=== PATIENT | male | born 1945 | race Caucasian/White ===

== ENCOUNTER 2016-10-23 15:33 | Observation (INO) | payer OTHER ==
--- NOTE | 2016-10-23 15:54 | EDPHY ---
H & P Stated Complaint: labile BP, CASIANO, dizziness HPI/ROS: HPI CHIEF COMPLAINT: Denies weakness, lightheadedness, headache, fatigue HISTORY OF PRESENT ILLNESS: This patient very pleasant 70-year-old male significant past medical history for hypertension, closed head injury with concussion in November, presents to the emergency room with I feel really bad patient tells me that he noticed his blood pressure around 1230 today was in the 70s he tells me that he has been very lightheaded and feels as if he is going to pass out. He tells me also he has had generalized weakness, fatigue, no chest pain no shortness of breath no nausea. Tells me does have a headache which is consistent with his previous headaches. Denies focal weakness, numbness or tingling. Decided come the emergency room as he felt really bad after he saw his blood pressure in the 70s. He does tell me gets very lightheaded when he goes to stand up or walk. He denies dizziness room sensation spinning, or chest pain. Denies history of CVA, HI or intracranial bleed. Upon arrival here in the emergency room he did have orthostatics performed by nursing staff his blood pressure while supine was in the 170s however upon standing went down to the 120 systolic. Heart rate did not change more than 10 points. Past Medical History: Bilateral lower extremity neuropathy, concussion, closed- head injury, hypertension Past Surgical History: multiple surgeries including cholecystectomy, multiple orthopedic surgeries, cervical fusion, lumbar fusion Social History: Retired, lives locally, denies drugs, daily use of alcohol, tobacco products Family History: noncontributory ROS REVIEW OF SYSTEMS: A comprehensive 10 point review of systems is otherwise negative aside from elements mentioned in the history of present illness. Exam Constitutional triage nursing summary reviewed, vital signs reviewed, awake/ alert. (Vital signs reviewed positive orthostatics) Eyes normal conjunctivae and sclera, EOMI, PERRLA. HENT normal inspection, atraumatic, moist mucus membranes, no epistaxis, neck supple/ no meningismus, no raccoon eyes. Respiratory clear to auscultation bilaterally, normal breath sounds, no respiratory distress, no wheezing. Cardiovascular rate normal, regular rhythm, no murmur, no edema, distal pulses normal. Gastrointestinal soft, non-tender, no rebound, no guarding, normal bowel sounds, no distension, no pulsatile mass. Genitourinary no CVA tenderness. Musculoskeletal no midline vertebral tenderness, full range of motion, no calf swelling, no tenderness of extremities, no meningismus, good pulses, neurovascularly intact. Skin pink, warm, & dry, no rash, skin atraumatic. Neurologic awake, alert and oriented x 3, AAOx3, moves all 4 extremities equally, motor intact, sensory intact, CN II-XII intact, normal cerebellar, normal vision, normal speech. Psychiatric normal mood/affect. Heme/Lymph/Immune no lymphadenopathy. Differential Diagnosis: This includes but is not limited to in a particular order dehydration, orthostatic hypotension, electrolyte abnormality, doubt intracranial bleed or stroke given normal neurological exam, ACS. Medical Decision Making: This patient had an IV established he is orthostatic positive, he will receive IV fluids, will check EKG, chest x-ray, CT scan of his head, electrolytes and blood work. Re-evaluation: EKG interpretation by me on record in WebMD system. Impression time of EKG is 15 56, this is sinus rhythm rate of 73 this is a normal sinus rhythm, there is no prolonged intervals, there is no ischemic changes specifically no ST elevation, ST depression, T-wave abnormalities or signs of arrhythmia. CT scan of the Without IV contrast The results of the study are negative for acute intracranial abnormality The study was read by Dr. Ash. I viewed the images myself on the PACS system. ED x-ray chest x-ray: One view. Negative for acute cardiopulmonary disease. Image interpreted by myself. 1821: Re-evaluation this patient at this time patient is still complaining of generalized weakness and lightheadedness. Patient did have positive orthostatics with over a 50 point point change from lying down this standing. Due to this patient's age, generalized weakness, lightheadedness he will be admitted to the hospitalist service for observation and hydration. 2038: Re-evaluation at this time patient is resting comfortably no acute distress. Did have positive orthostatics over 50 point change. He did receive 2 L normal saline he is not feeling any better. Due to his complaint of lightheadedness, generalized weakness, feeling as if he is going to pass out his age I will admit him to the hospital for observation and IV hydration he agrees to this plan. 2039: I spoke with Dr. Buckner who accepts admission for this patient Source: Patient - Personal History Current Tetanus Diphtheria and Acellular Pertussis (TDAP): Yes - Medical/Surgical History Hx Asthma: No Hx Chronic Respiratory Disease: No Hx Diabetes: No Hx Cardiac Disease: No Hx Renal Disease: No Hx Cirrhosis: No Hx Alcoholism: No Hx HIV/AIDS: No Hx Splenectomy or Spleen Trauma: No Other PMH: PSH: R knee; B thumb; L hip; cervical c2-c3 fusion; spinal fusion; [place]; HTN, BLE vascular surgery, BLE severe neuropathy. PMH: - Social History Smoking Status: Never smoked Constitutional: Initial Vital Signs Temperature (C) 36.6 C 10/23/16 15:43 Heart Rate 77 10/23/16 15:43 Respiratory Rate 16 10/23/16 15:43 Blood Pressure 164/96 H 10/23/16 15:43 O2 Sat (%) 93 10/23/16 15:43 O2 Delivery Mode Room Air Allergies/Adverse Reactions: lisinopril Allergy (Severe, Verified 12/26/13 10:02) Swelling/neck,face,throat Penicillins Allergy (Mild, Verified 05/31/12 19:07) Home Medications: Medication Instructions Recorded Aspirin EC [Aspirin EC 81 mg (*)] 81 mg PO DAILY 10/23/16 DULoxetine [Cymbalta 30 MG (*)] 90 mg PO HS 10/23/16 Hydrocodone/APAP 5/325 [[place] 1 - 2 tab PO Q6H PRN 10/23/16 5/325 (*)] Phenylephrine 0.25% Nasal 1 spray EACHNARE DAILY PRN 10/23/16 [Kuldip-Synephrine] Pregabalin [LYRICA] 100 mg PO BID 10/23/16 Simvastatin [Zocor] 20 mg PO 10/23/16 amLODIPine BESYLATE [Norvasc 5 mg 5 mg PO DAILY 10/23/16 (*)] Medical Decision Making - Data Points Laboratory Results: Laboratory Results 10/23/16 15:55 10/23/16 15:55 10/23/16 15:55 WBC 7.69 10^3/uL (3.80-9.50) RBC 5.37 10^6/uL (4.40-6.38) Hgb 16.3 g/dL (13.7-17.5) Hct 48.0 % (40.0-51.0) MCV 89.4 fL (81.5-99.8) MCH 30.4 pg (27.9-34.1) MCHC 34.0 g/dL (32.4-36.7) RDW 12.9 % (11.5-15.2) Plt Count 236 10^3/uL (150-400) MPV 10.8 fL (8.7-11.7) Neut % (Auto) 51.3 % (39.3-74.2) Lymph % (Auto) 37.2 % (15.0-45.0) [place] % (Auto) 9.5 % (4.5-13.0) Eos % (Auto) 1.2 % (0.6-7.6) Baso % (Auto) 0.7 % (0.3-1.7) Nucleat RBC Rel Count 0.0 % (0.0-0.2) Absolute Neuts (auto) 3.95 10^3/uL (1.70-6.50) Absolute Lymphs (auto) 2.86 10^3/uL (1.00-3.00) Absolute Monos (auto) 0.73 10^3/uL (0.30-0.80) Absolute Eos (auto) 0.09 10^3/uL (0.03-0.40) Absolute Basos (auto) 0.05 10^3/uL (0.02-0.10) Absolute Nucleated RBC 0.00 10^3/uL (0-0.01) Immature Gran % 0.1 % (0.0-1.1) Immature Gran # 0.01 10^3/uL (0.00-0.10) PT 12.6 SEC (12.0-15.0) INR 0.95 (0.83-1.16) APTT 30.2 SEC (23.0-38.0) Sodium 145 H mEq/L (134-144) Potassium 3.9 mEq/L (3.5-5.2) Chloride 103 mEq/L (97-110) Carbon Dioxide 29 mEq/l (22-31) Anion Gap 13 mEq/L (8-16) BUN 17 mg/dL (7-23) Creatinine 0.9 mg/dL (0.7-1.3) Estimated GFR > 60 Glucose 98 mg/dL (70-100) Calcium 9.7 mg/dL (8.5-10.4) Magnesium 2.1 mg/dL (1.6-2.3) Total Bilirubin 0.6 mg/dL (0.1-1.4) Conjugated Bilirubin 0.3 mg/dL (0.0-0.5) Unconjugated Bilirubin 0.3 mg/dL (0.0-1.1) AST 31 IU/L (17-59) ALT 45 IU/L (21-72) Alkaline Phosphatase 85 IU/L (38-126) Creatine Kinase 123 IU/L (0-224) CK-MB (CK-2) Fraction 1.46 ng/mL (0-3.19) Troponin I < 0.012 ng/mL (0-0.034) NT-Pro-B Natriuret Pep 48 pg/mL (0-125) Total Protein 7.8 g/dL (6.3-8.2) Albumin 4.6 g/dL (3.5-5.0) Lipase 103.0 IU/L (23-300) Medications Given: Discontinued Medications Acetaminophen (Tylenol) 1,000 mg PO EDNOW ONE Stop: 10/23/16 18:02 Last Admin: 10/23/16 18:04 Dose: 1,000 mg Acetaminophen (Tylenol) 1,000 mg PO EDNOW ONE Stop: 10/23/16 18:03 Last Admin: 10/23/16 18:09 Dose: Not Given Sodium Chloride (Ns) 1,000 mls @ 0 mls/hr IV ONCE ONE PRN Reason: As Directed Stop: 10/23/16 16:08 Last Admin: 10/23/16 16:27 Dose: 1,000 mls Sodium Chloride (Ns) 1,000 mls @ 0 mls/hr IV ONCE ONE PRN Reason: Wide Open Stop: 10/23/16 16:21 Last Admin: 10/23/16 16:47 Dose: 1,000 mls Departure - Departure [facility] Clinical Impression: Lightheadedness, Generalized weakness, Orthostatic hypotension Condition: Fair Referrals: IN STATE,. [Primary Care Provider] - As per Instructions
--- NOTE | 2016-10-23 15:58 | CPEKG ---
Heart Rate: 73 RR Interval: 822 P-R Interval: 212 QRSD Interval: 90 QT Interval: 404 QTC Interval: 446 P [place]: 77 QRS [place]: 45 T Wave [place]: 63 EKG Severity - NORMAL ECG - EKG Impression: SINUS RHYTHM Electronically Signed By: Inderjit Patricia 23-Oct-2016 21:18:04
[2016-10-23] MEDS ORDERED: NS 1,000 ML IV ONE ×2 (16:07→16:20)
[2016-10-23 16:19] LABS: % IMMATURE GRANULYOCYTES 0.1 % (0.0-1.1); ABSOLUTE IMMATURE GRANULOCYTES 0.01 10^3/uL (0.00-0.10); ADD DIFF? NO; ADD MORPH? NO; ADD SCAN? NO; ATYPICAL LYMPHOCYTE FLAG 0 (0-99); FRAGMENT RBC FLAG 0 (0-99); HEMOGLOBIN 16.3 g/dL (13.7-17.5); LEFT SHIFT FLG 0 (0-99); LIPEMIA HEMOLYSIS FLAG 90 (0-99); MEAN CELL HEMOGLOBIN 30.4 pg (27.9-34.1); MEAN CELL VOLUME 89.4 fL (81.5-99.8); MEAN PLATELET VOLUME 10.8 fL (8.7-11.7); PLATELET CLUMPS FLAG 0 (0-99); PLATELET COUNT 236 10^3/uL (150-400); RED BLOOD CELL COUNT 5.37 10^6/uL (4.40-6.38); RED CELL DISTRIBUTION WIDTH 12.9 % (11.5-15.2)
[2016-10-23 16:28] LABS: INR 0.95 (0.83-1.16); PROTIME(PATIENT) 12.6 SEC (12.0-15.0)
[2016-10-23 16:29] LABS: ALANINE AMINOTRANSFERASE 45 IU/L (21-72); ALBUMIN 4.6 g/dL (3.5-5.0); ALKALINE PHOSPHATASE 85 IU/L (38-126); ANION GAP 13 mEq/L (8-16); APTT 30.2 SEC (23.0-38.0); ASPARTATE AMINOTRANSFERASE 31 IU/L (17-59); BILIRUBIN,TOTAL 0.6 mg/dL (0.1-1.4); BILIRUBIN-CONJUGATED 0.3 mg/dL (0.0-0.5); BILIRUBIN-UNCONJUGATED 0.3 mg/dL (0.0-1.1); CALCIUM 9.7 mg/dL (8.5-10.4); CARBON DIOXIDE 29 mEq/l (22-31); CHLORIDE 103 mEq/L (97-110); CREATININE 0.9 mg/dL (0.7-1.3); GLOMERULAR FILTRATION RATE > 60; GLUCOSE 98 mg/dL (70-100); MAGNESIUM 2.1 mg/dL (1.6-2.3); POTASSIUM 3.9 mEq/L (3.5-5.2); SODIUM 145 mEq/L (134-144); TOTAL PROTEIN 7.8 g/dL (6.3-8.2)
--- NOTE | 2016-10-23 16:39 | DX ---
Portable Chest October 23, 2016 1619 hours Clinical Indications: Chest pain. Comparisons: None. Findings: Frontal view (only) shows clear lungs and no masses. Heart size and pulmonary vessels jenn ear normal. No evidence of pleural effusion. Impression: No acute cardiopulmonary process.
[2016-10-23 16:41] LABS: CREATINE KINASE-MB FRACTION 1.46 ng/mL (0-3.19); TROPONIN I < 0.012 ng/mL (0-0.034)
--- NOTE | 2016-10-23 16:54 | CT ---
CT Brain (Without Contrast) October 23, 2016 1638 hours History: Headache and dizziness. Comparison: December 09, 2015. Technique: Axial computed tomographic images of the brain without contrast. Dose reduction techniques were utilized. Findings: Ventricles, cisterns, and sulci are widened consistent with atrophy. No hydrocephalus, mid line shift/herniation, or epidural/subdural hematomas. No acute intraparenchymal hemorrhage or mass e ffect. Cerebrovascular atherosclerosis. Hypodensities in the white matter of bilateral cerebral hemis pheres. Bone windows demonstrate no displaced fractures. Mucoceles in the maxillary sinus base are s table. Impression: 1. Mild atrophy. 2. No acute hemorrhage, hydrocephalus, or mass effect. 3. Cerebrovascular atherosclerosis. 4. No definite acute infarct. 5. Mild microvascular ischemic disease. Critical results discussed by Dr. Ash with Dr. Littlejohn at 1651 hours on October 23, 2016.
[2016-10-23] MEDS ORDERED: ACETAMINOPHEN 500 MG TAB PO ONE ×2 (18:01→18:02)
[2016-10-23] MEDS ORDERED: HYDROmorphONE/DILAUDID 1 MG/ML SYR ONE (21:35)
[2016-10-23] MEDS ORDERED: HYDROmorphONE/DILAUDID 1 MG/ML SYR IVP ONE (21:44)
[2016-10-23] MEDS: DULoxetine 60 MG CAP PO SCH (22:40)
[2016-10-23] MEDS: PREGABALIN 50 MG CAP PO SCH (22:40)
[2016-10-23] MEDS ORDERED: PHENYLEPHRINE 0.25% NASAL 15 ML SPRAY EACHNARE PRN (23:42)
[2016-10-23] MEDS ORDERED: NS 1,000 ML IV SCH (23:45)
[2016-10-23] MEDS ORDERED: HYDROCODONE/APAP 5/325 TAB PO PRN (23:48)
[2016-10-23] MEDS ORDERED: TEMAZEPAM 15 MG CAP PO PRN (23:48)
[2016-10-23] MEDS ORDERED: ONDANSETRON 4 MG/2 ML VIAL IVP PRN (23:48)
[2016-10-23] MEDS ORDERED: ACETAMINOPHEN 325 MG TAB PO PRN (23:48)
[2016-10-23] MEDS ORDERED: ONDANSETRON DISINTEGRATING 4 MG TAB PO PRN (23:48)
[2016-10-24 04:41] LABS: COLOR YELLOW; LEUKOCYTE ESTERASE,URINE NEGATIVE (NEGATIVE); NITRITE,URINE NEGATIVE (NEGATIVE)
[2016-10-24 04:46] LABS: % IMMATURE GRANULYOCYTES 0.1 % (0.0-1.1); ABSOLUTE IMMATURE GRANULOCYTES 0.01 10^3/uL (0.00-0.10); ADD DIFF? NO; ADD MORPH? NO; ADD SCAN? NO; ATYPICAL LYMPHOCYTE FLAG 0 (0-99); FRAGMENT RBC FLAG 0 (0-99); HEMATOCRIT 44.8 % (40.0-51.0); HEMOGLOBIN 14.9 g/dL (13.7-17.5); LEFT SHIFT FLG 0 (0-99); LIPEMIA HEMOLYSIS FLAG 80 (0-99); MEAN CELL HEMOGLOBIN 29.8 pg (27.9-34.1); MEAN CELL HEMOGLOBIN CONCENTR. 33.3 g/dL (32.4-36.7); MEAN CELL VOLUME 89.6 fL (81.5-99.8); MEAN PLATELET VOLUME 10.7 fL (8.7-11.7); PLATELET CLUMPS FLAG 0 (0-99); PLATELET COUNT 225 10^3/uL (150-400)
[2016-10-24 05:10] LABS: ANION GAP 12 mEq/L (8-16); CALCIUM 8.9 mg/dL (8.5-10.4); CARBON DIOXIDE 27 mEq/l (22-31); CHLORIDE 105 mEq/L (97-110); CREATININE 0.9 mg/dL (0.7-1.3); GLOMERULAR FILTRATION RATE > 60; GLUCOSE 101 mg/dL (70-100); POTASSIUM 4.9 mEq/L (3.5-5.2); SODIUM 144 mEq/L (134-144)
[2016-10-24 05:21] LABS: TROPONIN I < 0.012 ng/mL (0-0.034)
--- NOTE | 2016-10-24 05:46 | PDGENHP ---
History and Physical - Chief Complaint lightheadedness - History of Present Illness Patient is a 70-year-old male with history of hypertension, hyperlipidemia, chronic tension headaches, peripheral neuritis of his bilateral feet who presents to the ED with complaint of lightheadedness. Patient states he had a fall about 1 year ago that resulted in head trauma and a severe concussion. Since that time patient reports he has been having chronic tension headaches in the posterior neck radiating to his occiput, memory loss and episodes of lightheadedness. He states for the past 2 days the sensation of lightheadedness has significantly worsened, especially when moving from sitting to standing positions. He does not describe it as if the room is spinning but more as if he was going to pass out. On day of presentation patient again felt this way and decided to check his blood pressure, he states it was in the 70/ 50s range at which point he decided to call EMS. He denies any recent fevers chills, cough, abdominal pain, nausea, vomiting, diarrhea or dysuria. He reports normal p.O. intake recently, denies any recent travel or sick contacts. Upon arrival to the ED, patient's vital signs were afebrile, slightly hypertensive, with normal heart rate and respiratory. However on checking of orthostatics, patient's systolic blood pressure dropped from 170 to 120 when moving from supine to standing position. Labs including troponin, a CBC, BMP were within normal limits. UA negative for infection. Chest x-ray negative for signs of infection. Patient was given 2 L of IV normal saline and admitted to the hospitalist service for further management. History Information - Allergies/Home Medication List Allergies/Adverse Reactions: lisinopril Allergy (Severe, Verified 12/26/13 10:02) Swelling/neck,face,throat Penicillins Allergy (Mild, Verified 05/31/12 19:07) Home Medications: Aspirin EC [Aspirin EC 81 mg (*)] 81 mg PO DAILY 10/23/16 [Last Taken 10/22/16] DULoxetine [Cymbalta 30 MG (*)] 90 mg PO HS 10/23/16 [Last Taken 10/22/16] Hydrocodone/APAP 5/325 [[place] 5/325 (*)] 1 - 2 tab PO Q6H PRN 10/23/16 [Last Taken 10/16/16] Phenylephrine 0.25% Nasal [Kuldip-Synephrine] 1 spray EACHNARE DAILY PRN 10/23/16 [ Last Taken Unknown] Pregabalin [LYRICA] 100 mg PO BID 10/23/16 [Last Taken 10/22/16] Simvastatin [Zocor] 20 mg PO 10/23/16 [Last Taken 10/22/16] amLODIPine BESYLATE [Norvasc 5 mg (*)] 5 mg PO DAILY 10/23/16 [Last Taken ] I have personally reviewed and updated: family history, medical history, social history, surgical history - Past Medical History Additional medical history: Hypertension. Chronic tension headache. Hyperlipidemia. Peripheral neuritis of bilateral feet - Surgical History Additional surgical history: Knee replacement. Hip replacement. Colon resection for diverticulitis. L4-S1 fusion. Bilateral varicose vein removal - Family History Additional family history: Father: Brain tumor - Social History Smoking Status: Never smoked Alcohol Use: None Drug Use: None Additional social history: Patient is a retired former caregiver for special needs people. Currently lives independently. Review of Systems ROS: 10pt was reviewed & negative except for what was stated in HPI & below Physical Exam Temp Pulse Resp BP Pulse Ox 36.6 C 61 16 145/88 H 97 10/24/16 04:00 10/24/16 04:00 10/24/16 04:00 10/24/16 04:00 10/24/16 04:00 O2 (L/minute) 2 Constitutional: no apparent distress, appears nourished, not in pain Eyes: PERRL, anicteric sclera, EOMI Ears, Nose, Mouth, Throat: moist mucous membranes, hearing normal, ears appear normal, no oral mucosal ulcers Cardiovascular: regular rate and rhythym, no murmur, rub, or gallop, pulses symmetric bilaterally, No JVD, No edema Peripheral Pulses: 2+: dorsalis-pedis (R), dorsalis-pedis (L) Respiratory: no respiratory distress, no rales or rhonchi, clear to auscultation Gastrointestinal: normoactive bowel sounds, soft, non-tender abdomen, no palpable masses Genitourinary: no bladder fullness, no bladder tenderness Skin: warm, normal color, no rashes or abrasions, no fluctuance, No mottled Musculoskeletal: full muscle strength, no muscle tenderness, normal joint ROM, no joint effusions Neurologic: AAOx3, sensation intact bilaterally, CN II-XII Intact, No weakness, No numbness Psychiatric: interacting appropriately, not anxious, not encephalopathic, thought process linear Lab Data & Imaging Review 10/24/16 04:26 10/24/16 04:26 WBC 8.30 10^3/uL (3.80-9.50) 10/24/16 04:26 RBC 5.00 10^6/uL (4.40-6.38) 10/24/16 04:26 Hgb 14.9 g/dL (13.7-17.5) 10/24/16 04:26 Hct 44.8 % (40.0-51.0) 10/24/16 04:26 MCV 89.6 fL (81.5-99.8) 10/24/16 04:26 MCH 29.8 pg (27.9-34.1) 10/24/16 04:26 MCHC 33.3 g/dL (32.4-36.7) 10/24/16 04:26 RDW 13.0 % (11.5-15.2) 10/24/16 04:26 Plt Count 225 10^3/uL (150-400) 10/24/16 04:26 MPV 10.7 fL (8.7-11.7) 10/24/16 04:26 Neut % (Auto) 50.9 % (39.3-74.2) 10/24/16 04:26 Lymph % (Auto) 39.6 % (15.0-45.0) 10/24/16 04:26 [place] % (Auto) 7.8 % (4.5-13.0) 10/24/16 04:26 Eos % (Auto) 1.0 % (0.6-7.6) 10/24/16 04:26 Baso % (Auto) 0.6 % (0.3-1.7) 10/24/16 04:26 Nucleat RBC Rel Count 0.0 % (0.0-0.2) 10/24/16 04:26 Absolute Neuts (auto) 4.22 10^3/uL (1.70-6.50) 10/24/16 04:26 Absolute Lymphs (auto) 3.29 10^3/uL (1.00-3.00) H 10/24/16 04:26 Absolute Monos (auto) 0.65 10^3/uL (0.30-0.80) 10/24/16 04:26 Absolute Eos (auto) 0.08 10^3/uL (0.03-0.40) 10/24/16 04:26 Absolute Basos (auto) 0.05 10^3/uL (0.02-0.10) 10/24/16 04:26 Absolute Nucleated RBC 0.00 10^3/uL (0-0.01) 10/24/16 04:26 Immature Gran % 0.1 % (0.0-1.1) 10/24/16 04:26 Immature Gran # 0.01 10^3/uL (0.00-0.10) 10/24/16 04:26 PT 12.6 SEC (12.0-15.0) 10/23/16 15:55 INR 0.95 (0.83-1.16) 10/23/16 15:55 APTT 30.2 SEC (23.0-38.0) 10/23/16 15:55 Sodium 144 mEq/L (134-144) 10/24/16 04:26 Potassium 4.9 mEq/L (3.5-5.2) 10/24/16 04:26 Chloride 105 mEq/L (97-110) 10/24/16 04:26 Carbon Dioxide 27 mEq/l (22-31) 10/24/16 04:26 Anion Gap 12 mEq/L (8-16) 10/24/16 04:26 BUN 14 mg/dL (7-23) 10/24/16 04:26 Creatinine 0.9 mg/dL (0.7-1.3) 10/24/16 04:26 Estimated GFR > 60 10/24/16 04:26 Glucose 101 mg/dL (70-100) H 10/24/16 04:26 Calcium 8.9 mg/dL (8.5-10.4) 10/24/16 04:26 Magnesium 2.0 mg/dL (1.6-2.3) 10/24/16 04:26 Total Bilirubin 0.6 mg/dL (0.1-1.4) 10/23/16 15:55 Conjugated Bilirubin 0.3 mg/dL (0.0-0.5) 10/23/16 15:55 Unconjugated Bilirubin 0.3 mg/dL (0.0-1.1) 10/23/16 15:55 AST 31 IU/L (17-59) 10/23/16 15:55 ALT 45 IU/L (21-72) 10/23/16 15:55 Alkaline Phosphatase 85 IU/L (38-126) 10/23/16 15:55 Creatine Kinase 123 IU/L (0-224) 10/23/16 15:55 CK-MB (CK-2) Fraction 1.46 ng/mL (0-3.19) 10/23/16 15:55 Troponin I < 0.012 ng/mL (0-0.034) 10/24/16 04:26 NT-Pro-B Natriuret Pep 48 pg/mL (0-125) 10/23/16 15:55 Total Protein 7.8 g/dL (6.3-8.2) 10/23/16 15:55 Albumin 4.6 g/dL (3.5-5.0) 10/23/16 15:55 Lipase 103.0 IU/L (23-300) 10/23/16 15:55 TSH 2.820 uIU/mL (0.465-4.680) 10/24/16 04:26 Urine Color YELLOW 10/23/16 04:00 Urine Appearance CLEAR 10/23/16 04:00 Urine pH 5.0 (5.0-7.5) 10/23/16 04:00 Ur Specific [place] 1.016 (1.002-1.030) 10/23/16 04:00 Urine Protein NEGATIVE (NEGATIVE) 10/23/16 04:00 Urine Ketones NEGATIVE (NEGATIVE) 10/23/16 04:00 Urine Blood NEGATIVE (NEGATIVE) 10/23/16 04:00 Urine Nitrate NEGATIVE (NEGATIVE) 10/23/16 04:00 Urine Bilirubin NEGATIVE (NEGATIVE) 10/23/16 04:00 Urine Urobilinogen NEGATIVE EU (0.2-1.0) 10/23/16 04:00 Ur Leukocyte Esterase NEGATIVE (NEGATIVE) 10/23/16 04:00 Urine Glucose NEGATIVE (NEGATIVE) 10/23/16 04:00 Influenza Typ A,B (DFA) NEGATIVE FOR FLU (NEGATIVE) 10/23/16 23:55 Visualized and Interpreted Chest x-ray results: Yes Chest X-Ray results: no infiltrate, normal Visualized and Interpreted imaging results: Yes Interpretation: CT head: No acute infarct hemorrhage or edema, mild atrophy Visualized and Interpreted EKG results: Yes EKG Interpretation: Positive for: normal sinsus rhythm (No ST/T-wave changes, normal intervals) Assessment & Plan Assessment: Patient is a 71-year-old male with history of hypertension, hyperlipidemia chronic headaches presents to the ED with symptoms of lightheadedness, with a near syncopal episode. Initial ED workup unremarkable other than for positive relative orthostasis. Plan: # pre syncope Differential includes acs, arrhythmia, vasovagal episodes, hypovolemia, autonomic insufficiency, cva/tia. Initial cardiac investigations, including EKG and troponin, were unremarkable. CT head also unremarkable and patient does not have any focal neuro deficits on exam. Given IVF hydration and will reassess orthostatics. - cont NS @ 100 cc/hr - trend troponins, repeat EKGs - check carotid dopplers - monitor on telemetry - check tsh, lipid panel, hbA1c - check TTE, carotid dopplers # chronic HTN Pt slightly hypertensive, but with significant drop in BP with orthostatic movements. Will cont home BP med with close monitoring of BP. # chronic peripheral neuritis Pt with exquisitely tender peripheral neuropathy of b/l feet. Will cont home lyrica, cymbalta. # HLD Cont home statin. # dispo: admit under observation status # full code
--- NOTE | 2016-10-24 08:30 | US ---
Bilateral Duplex Carotid Sonography Clinical Indications: Near syncope. Vascular risk factors include hypertension. Evaluate for carotid stenosis. Technique: The cervical portions of the carotid and vertebral arteries were imaged and interrogated by color and pulsed Doppler. Spectral analysis was performed. Cine clips are stored on PACS. Comparison Study: None relevant. Findings: Right Carotid Artery: Right ICA peak systolic velocity = 51 cm/sec Right CCA peak systolic velocity = 50 cm/sec Right ECA peak systolic velocity = 83 cm/sec Right ICA/CCA systolic velocity ratio = 1.0 Velocities correlate to 0-49% diameter stenosis of the origin of the right internal carotid artery wi th respect to the normal distal internal carotid artery. Left Carotid Artery: Left ICA peak systolic velocity = 59 cm/sec Left CCA peak systolic velocity = 65 cm/sec Left ECA peak systolic velocity = 67 cm/sec Left ICA/CCA systolic velocity ratio = 0.9 Velocities correlate to 0-49% diameter stenosis of the origin of the left internal carotid artery wit h respect to the normal distal internal carotid artery. Vertebral Arteries: Antegrade flow is shown by pulsed Doppler of each vertebral artery. Impression: 1. There is no evidence of a flow-limiting carotid stenosis. 2. Velocities correlate to 0-49% diameter stenosis of the origin of the right internal carotid artery . 3. Velocities correlate to 0-49% diameter stenosis of the origin of the left internal carotid artery. Measurement of carotid stenosis is based on velocity parameters that correlate the residual internal carotid diameter with [place] Symptomatic Carotid Endarterectomy Trial (NASCET) based stenosis levels.
[2016-10-24] MEDS: PREGABALIN 50 MG CAP PO SCH (08:37)
[2016-10-24] MEDS: DULoxetine 60 MG CAP PO SCH (08:37)
[2016-10-24] MEDS ORDERED: ASPIRIN EC 81 MG TAB PO SCH (09:00)
[2016-10-24] MEDS ORDERED: ENOXAPARIN 40 MG/0.4 ML SYR SC SCH (09:00)
[2016-10-24] MEDS ORDERED: amLODIPine BESYLATE 5 MG TAB PO SCH (09:00)
[2016-10-24] MEDS ORDERED: ATORVASTATIN CALCIUM 10 MG TAB PO SCH (09:00)
[2016-10-24] MEDS ORDERED: PREGABALIN 50 MG CAP PO SCH ×4 (09:00→21:00)
[2016-10-24] MEDS ORDERED: PREGABALIN 75 MG CAP PO SCH (09:00)
--- NOTE | 2016-10-24 10:06 | ECHO ---
[id number] + + [id number] : : [place] [id number] : : [phone] + Adult Echocardiographic Report + ------+ :Name: ALEX Bri Date: 10/24/2016 08:00 AM : : Hospital Admission Number: [id number] Essie n: 348: :: 1945 Gender: Male Height: 74 in : :Age: 71 yrs Race: WH Weight: 249 lb : :Reason For Study: near syncope : : BSA: 2.4 meters 2 : + ------+ MMode/2D Measurements & Calculations IVSd: 0.91 cm RVDd: 4.0 cm FS: 42.4 % Ao root diam: LVPWd: 0.83 cm LVIDd: 4.5 cm EDV(Teich): 3.6 cm LVIDs: 2.6 cm 92.4 ml LA dimension: ESV(Teich): 2.9 cm 24.4 ml EF(Teich): 73.6 % LVLd ap4: 9.9 cm SV(MOD-sp4): EDV(MOD-sp4): 105.0 ml 176.0 ml LVLs ap4: 8.9 cm ESV(MOD-sp4): 71.0 ml EF(MOD-sp4): 59.7 % Normal Measurement Values: + + :LVIDd (3.5-5.7cm) IVSd (0.6-1.1cm) LVPWd (0.6-1.1cm) Aortic Root (2.0-3.7cm)Left Atrium (1.5-4.0cm): :LV Vol(d) (76-115ml) LV Vol(s) (29-48ml) Ejec Fraction (50-65%)PV Aneesh (0.6- 1.2m/s) TV Aneesh (0.4-1.0m/s) : :MV E Aneesh (0.8-1.0m/s)MV A Aneesh (0.3-1.0m/s)LVOT Aneesh (0.7-1.2m/s) Asc Ao Aneesh ( 0.9-1.8m/s) : + + Doppler Measurements & Calculations MV E max aneesh: Ao V2 max: LV V1 max: PA V2 max: 80.5 cm/sec 103.0 cm/sec 82.1 cm/sec 81.4 cm/sec MV A max aneesh: Ao max P.2 mmHg LV V1 max PG: PA max P.7 cm/sec 2.7 mmHg 2.7 mmHg MV E/A: 1.3 MV dec time: 0.19 sec Left Ventricle The left ventricle is normal in size and function. There is normal left ventricular wall thickness. Ejection Fraction = 65-70%. No regional wall motion abnormalities noted. Right Ventricle The right ventricle is normal in size and function. Atria The left atrial size is normal. Right atrial size is normal. Mitral Valve The mitral valve is normal in structure and function. There is no mitral valve stenosis. There is trace mitral regurgitation. Tricuspid Valve The tricuspid valve is normal in structure and function. There is no tricuspid stenosis. No tricuspid regurgitation. Aortic Valve The aortic valve is trileaflet. There is no aortic stenosis. There is no aortic insufficiency. Pulmonic Valve The pulmonic valve is normal in structure and function. There is no pulmonic valvular regurgitation. Great Vessels The aortic root is normal size. Pericardium/Pleural There is no pericardial effusion. Conclusion A two-dimensional transthoracic echocardiogram with M-mode and Doppler was performed. The left ventricle is normal in size and function. Ejection Fraction = 65-70%. Normal LV wall motion There is trace mitral regurgitation. No prior echo Final Reading Physician: Dr Lacey Reddy electronically signed on 10/24/2016 10:05 AM Performed By: Milena Graham
[2016-10-24 11:06] VITALS: BP 126/72; PULSE 70; RESP 24; TEMP 97.2; O2SAT 94
[2016-10-24] MEDS ORDERED: ATENOLOL 25 MG TAB PO PRN (12:04)
--- NOTE | 2016-10-24 12:25 | HOSPPROG ---
Hospitalist Progress Note Assessment/Plan: Mr Ramachandran is a 71 y/o patient who was admitted with lightheadedness. today is my first encounter with the patient/ chart reviewed. #. dizziness/ pre-syncope -EKG shows sinus rhythm -echo shows normal LV wall motion w an EF of 65-70% -CT of head shows nothing acute -Carotid studies show no flow limiting stenosis -TSH is 2.8 -troponin are negative -negative for influenza -has hx of lightheadedness #. HTN -bp overall stable, a bit elevated #. Chronic peripheral neuritis -Lyrica and Cymbalta #. Chronic tension headaches -has had cervical surgery and chronically tight trapezius -has a neurologist he sees in the OP setting -gave him names of 2 local neurologist here if he wants different advice on treatment options #. Plan: PT is recommending walking w trekking poles/trial of Robaxin, see his neurologist soon (CM working on setting up an appt) Subjective: Ray is feeling better but voices concern about his headaches that are chronic. Objective: Vital Signs Temp Pulse Resp BP Pulse Ox 36.2 C 70 24 H 126/72 H 94 10/24/16 11:05 10/24/16 11:05 10/24/16 11:05 10/24/16 11:05 10/24/16 11:05 Laboratory Results 10/24/16 04:26 10/24/16 04:26 10/23/16 10/24/16 10/25/16 05:59 05:59 05:59 Intake Total 2838 Output Total 200 500 Balance 2638 -500 PT 12.6 SEC (12.0-15.0) 10/23/16 15:55 INR 0.95 (0.83-1.16) 10/23/16 15:55 - Physical Exam Constitutional: no apparent distress, appears nourished, not in pain Eyes: PERRL Ears, Nose, Mouth, Throat: hearing normal Cardiovascular: regular rate and rhythym Respiratory: no respiratory distress Gastrointestinal: normoactive bowel sounds Musculoskeletal: full muscle strength, other (tight trapezius area) Neurologic: AAOx3 Psychiatric: interacting appropriately ICD10 Worksheet Patient Problems: Problems Problem Status Diagnosed Generalized weakness Acute Lightheadedness Acute Orthostatic hypotension Acute
[2016-10-24] MEDS ORDERED: IBUPROFEN 200 MG TAB PO PRN (13:52)
[2016-10-24] MEDS ORDERED: HYDROCODONE/APAP 10/325 TAB PO PRN (14:00)
--- NOTE | 2016-10-24 16:52 | GDS ---
[f rep st] DISCHARGE SUMMARY DISCHARGE DIAGNOSES: 1. Dizziness, presyncopal type symptoms. 2. Hypertension. 3. Chronic peripheral neuritis. 4. Chronic tension headaches. BRIEF HISTORY: The patient is a 71-year-old male with a history of hypertension , hyperlipidemia, chronic tension headache, peripheral neuritis of his feet who presented to the emergency room with complaint of lightheadedness. He had a fall approximately a year ago that resulted in head trauma and severe concussion. He has been having chronic tension headaches since that. He also sees a neurologist for treatment of this. For the past 2 days prior to his admission, he said he had lightheadedness. He checked his blood pressure at home and it was in the 70s over 50s range, in which he called EMS. Upon arrival in the emergency room his blood pressure was stable. He was admitted for further evaluation. HOSPITAL COURSE PER PROBLEM: 1. Dizziness, presyncopal. His 12-lead EKG showed sinus rhythm. On the ekg monitor tech he has been in sinus rhythm. An echocardiogram shows normal LV wall motion with an EF of 65% to 70%. CT of his head shows nothing acute. Carotid study showed no flow limiting stenosis. His TSH is 2.8. Three troponin levels were checked which were all negative. He is negative for influenza. In talking with him, he felt his blood pressure dropped. He does have some mild orthostatic changes while going from lying to sitting. 2. Hypertension. Overall, has been stable. 3. Chronic peripheral neuritis. He is on Lyrica and Cymbalta. 4. Chronic tension headaches. This was his main concern in talking with him today. He also says he has difficulty due to tight trapezius pain. Will let try Robaxin for a few nights to see if this helps. He has a neurologist that he sees in the outpatient setting. I also gave him the names of 2 local neurologist if he wants different evaluations. PENDING LABS: None. CONDITION AT DISCHARGE: Stable. Blood pressure is 126/72, respiratory rate 17 , O2 sats on room air 94%. Temperature is 36.2 Celsius. MEDICATIONS AT DISCHARGE: Please see the EMR. The only new medication is Robaxin to take q.h.s. p.r.n. and see if this helps with his neck tightness. DISCHARGE INSTRUCTIONS: 1. To follow up with his neurologist. 2. To make sure his son is close by if he tries the Robaxin because this may increase his risk of falling. 3. To go slowly from lying to sitting to standing to see if this helps with the dizziness. /[id number]/MODL MTDD
[2016-10-24] MEDS ORDERED: PRESERVISION AREDS 2 EYE VITAMIN 1 EACH PO SCH (21:00)
[2016-10-24] MEDS ORDERED: DULoxetine 30 MG CAP PO SCH ×2 (21:00)
[2016-10-25] MEDS ORDERED: PREGABALIN 50 MG CAP PO SCH ×2 (09:00)
[2016-10-25] MEDS ORDERED: GLUCOSAMINE/CHONDROITIN CAP PO SCH (09:00)
[2016-10-25] MEDS ORDERED: Herbals/Supplements -Info Only PO SCH (09:00)
[2016-10-25] MEDS ORDERED: MULTIVITAMINS 1 EACH TAB PO SCH (09:00)
== END 2016-10-24 16:45 | disposition home or self-care (01) ==
LOC: F3N 22:50
PROVIDERS: ADMIT Internal Medicine; ATTEND Internal Medicine
DX: R42 Dizziness and giddiness (principal); G62.9 Polyneuropathy, unspecified; G44.229 Chronic tension-type headache, not intractable; I10 Essential (primary) hypertension; E78.5 Hyperlipidemia, unspecified
CPT/HCPCS: 70450; 71010; 93005; 93306; 93880; 96361; 96374; 97161; 99285; G0378; G8978; G8979; G8980; J1170; J1650

== ENCOUNTER → 2017-02-16 | Outpatient (CLI) | payer OTHER | LOC: GIMAGING 20:26 | PROVIDERS: ATTEND Nurse Practitioner Family | DX: M79.675 Pain in left toe(s) (principal) | CPT/HCPCS: 73660-PO ==

== ENCOUNTER 2017-10-05 21:51 | Emergency (ER) | payer OTHER ==
[2017-10-05 22:02] VITALS: TEMP 99.7
--- NOTE | 2017-10-05 22:10 | CPEKG ---
Heart Rate: 91 RR Interval: 659 P-R Interval: 184 QRSD Interval: 92 QT Interval: 360 QTC Interval: 443 P [place]: 78 QRS [place]: 47 T Wave [place]: 81 EKG Severity - BORDERLINE ECG - EKG Impression: SINUS RHYTHM EKG Impression: ATRIAL PREMATURE COMPLEX EKG Impression: BORDERLINE T ABNORMALITIES, LATERAL LEADS Electronically Signed By: Dona Heredia 06-Oct-2017 14:09:50
[2017-10-05] MEDS ORDERED: NS 1,000 ML IV ONE (22:42)
--- NOTE | 2017-10-05 22:45 | EDPHY ---
H & P Stated Complaint: Irregular heartbeat, cardiac Time Seen by Provider: 10/05/17 22:15 HPI/ROS: HPI The patient presents with irregular heartbeat, complaining of palpitations for the last several hours which have been intermittent. Throughout the day today he felt a bit lightheaded and thought he may be dehydrated. He went to a green party and afterwards while he was sitting on his couch he felt skipped beats in his heart. This lasted for a few minutes and then resolved. It has been intermittent since then. He called 911. EKG in the field showed PACs. His blood pressure has been slightly elevated. He does complain of occasional very mild stabbing left-sided chest pain that last for seconds at a time. This is been present for the last few months he believes that was not entirely sure. He does not have any shortness of breath, nausea or vomiting. He does not recall any prior episodes of palpitations. REVIEW OF SYSTEMS Constitutional: No fever, no chills. Eyes: No discharge. ENT: No sore throat. Cardiovascular: No chest pain, no palpitations. Respiratory: No cough, no shortness of breath. Gastrointestinal: No abdominal pain, no vomiting. Genitourinary: No hematuria. Musculoskeletal: No back pain. Skin: No rashes. Neurological: No headache. PMHx: Peripheral neuritis, hypertension Soc Hx: Does not drink alcohol, lives at home with his son and 2 special needs children PHYSICAL General Appearance: Alert, no distress Eyes: Pupils equal and round no pallor or injection ENT, Mouth: Mucous membranes moist Respiratory: There are no retractions, lungs are clear to auscultation Cardiovascular: Regular rate, rhythm seems normal Gastrointestinal: Abdomen is soft and non-tender, no masses, bowel sounds normal Neurological: A&O, moves all extremities Skin: Warm and dry, no rashes Musculoskeletal: Neck is supple non tender Extremities: symmetrical, full range of motion Psychiatric: Patient is oriented X 3, there is no agitation Source: Patient Exam Limitations: No limitations - Personal History Current Tetanus/Diphtheria Vaccine: Yes - Medical/Surgical History Hx Asthma: No Hx Chronic Respiratory Disease: No Hx Diabetes: No Hx Cardiac Disease: No Hx Renal Disease: No Hx Cirrhosis: No Hx Alcoholism: No Hx HIV/AIDS: No Hx Splenectomy or Spleen Trauma: No Other PMH: PSH: R knee; B thumb; L hip; cervical c2-c3 fusion; spinal fusion; [place]; HTN, BLE vascular surgery, BLE severe neuropathy. PMH: - Social History Smoking Status: Never smoked Constitutional: Initial Vital Signs Temperature (C) 37.6 C 10/05/17 21:56 Heart Rate 87 10/05/17 21:56 Respiratory Rate 19 10/05/17 21:56 Blood Pressure 150/90 H 10/05/17 21:56 O2 Sat (%) 95 10/05/17 21:56 O2 Delivery Mode Room Air O2 (L/minute) 2 Allergies/Adverse Reactions: lisinopril Allergy (Severe, Verified 12/26/13 10:02) Swelling/neck,face,throat Penicillins Allergy (Mild, Verified 05/31/12 19:07) Home Medications: Medication Instructions Recorded DULoxetine [Cymbalta 30 MG (*)] 60 mg PO DAILY 10/23/16 Phenylephrine 0.25% Nasal 1 spray EACHNARE DAILY PRN 10/23/16 [Kuldip-Synephrine] Simvastatin [Zocor] 20 mg PO HS 10/23/16 amLODIPine BESYLATE [Norvasc 5 mg 5 mg PO DAILY 10/23/16 (*)] Acetaminophen [Tylenol 325mg (*)] 325 mg PO DAILY PRN 10/24/16 Acetaminophen/ASA/Caffeine 1 each PO DAILY 10/24/16 [Excedrin Tablet (*)] Aspirin [Aspirin 325 mg (*)] 325 mg PO DAILY 10/24/16 Atenolol [Tenormin 25 mg (*)] 25 mg PO DAILY PRN 10/24/16 C/E/Zn/Cu/OM3/DHA/EPA/LUT/ZEAX 1 each PO BID 10/24/16 [Preservision Areds 2 Softgel] DULoxetine [Cymbalta 30 MG (*)] 30 mg PO HS 10/24/16 Glucosamine/Chondroitin 1 each PO DAILY 10/24/16 [Glucosamine/Chondroitin (*)] Herbals/Supplements -Info Only 1 ea PO DAILY 10/24/16 Hydrocodone/Acetaminophen [Noti 1 - 2 each PO Q6HRS PRN 10/24/16 7.5-325 Tablet] Ibuprofen [Motrin (*)] 200 mg PO DAILY PRN 10/24/16 Methocarbamol [Robaxin 750 mg (*)] 750 mg PO HS PRN #7 tab 10/24/16 Multivitamins [Multivitamin (*)] 1 each PO DAILY 10/24/16 Pregabalin [Lyrica 50mg (*)] 100 mg PO DAILY 10/24/16 Pregabalin [Lyrica 50mg (*)] 200 mg PO HS 10/24/16 Medical Decision Making - Diagnostics EKG Interpretation: EKG: Complete interpretation has been separately recorded in the [employer] archive. Summary impression: PACs are present Imaging Results: Imaging Impressions Chest X-Ray 10/05/17 22:42 Impression: 1. Left greater than right basilar airspace opacities, likely atelectasis, though a pneumonia could have a similar appearance. 2. Peribronchial cuffing which may indicate bronchitis and/or reactive airways disease. Imaging: I viewed and interpreted images myself Differential Diagnosis: This is a 71-year-old man who presents with irregular heart rate tonight, experienced as skipped beats while at rest with no associated symptoms. On exam , he does have an irregular heartbeat, otherwise exam is normal. On review of systems, he does report some intermittent mild stabbing chest pain recently. Differential diagnosis includes atrial fibrillation, VT, PACs, PVCs, SVT. Patient's EKGs from the field reveal PACs, EKG here confirms this. Plan to check basic labs including electrolytes. In the emergency department, patient 1 L of IV fluid for presumed volume depletion. Chest x-ray was relatively unremarkable perhaps showing atelectasis. On the manager part he did have occasional PACs, however no signs of any atrial fibrillation, ventricular tachycardia. He felt better after fluids on reassessment. He did say he had been drinking more caffeine than usual today and I wonder if this contributed to his symptoms. I think it is safe for discharge home and I have advised him to follow up with damper worker. He is in agreement with this plan. - Data Points Laboratory Results: Laboratory Results 10/05/17 22:00 10/05/17 22:00 10/05/17 10/05/17 22:00 22:00 WBC 13.74 10^3/uL H 10^3/uL (3.80-9.50) RBC 4.91 10^6/uL 10^6/uL (4.40-6.38) Hgb 15.4 g/dL g/dL (13.7-17.5) Hct 44.5 % % (40.0-51.0) MCV 90.6 fL fL (81.5-99.8) MCH 31.4 pg pg (27.9-34.1) MCHC 34.6 g/dL g/dL (32.4-36.7) RDW 12.9 % % (11.5-15.2) Plt Count 211 10^3/uL 10^3/uL (150-400) MPV 11.7 fL fL (8.7-11.7) Neut % (Auto) 85.2 % H % (39.3-74.2) Lymph % (Auto) 9.5 % L % (15.0-45.0) [place] % (Auto) 4.4 % L % (4.5-13.0) Eos % (Auto) 0.2 % L % (0.6-7.6) Baso % (Auto) 0.3 % % (0.3-1.7) Nucleat RBC Rel Count 0.0 % % (0.0-0.2) Absolute Neuts (auto) 11.71 10^3/uL H 10^3/uL (1.70-6.50) Absolute Lymphs (auto) 1.31 10^3/uL 10^3/uL (1.00-3.00) Absolute Monos (auto) 0.60 10^3/uL 10^3/uL (0.30-0.80) Absolute Eos (auto) 0.03 10^3/uL 10^3/uL (0.03-0.40) Absolute Basos (auto) 0.04 10^3/uL 10^3/uL (0.02-0.10) Absolute Nucleated RBC 0.00 10^3/uL 10^3/uL (0-0.01) Immature Gran % 0.4 % % (0.0-1.1) Immature Gran # 0.05 10^3/uL 10^3/uL (0.00-0.10) Sodium 141 mEq/L mEq/L (134-144) Potassium 3.9 mEq/L mEq/L (3.5-5.2) Chloride 99 mEq/L mEq/L (97-110) Carbon Dioxide 25 mEq/l mEq/l (22-31) Anion Gap 17 mEq/L H mEq/L (8-16) BUN 23 mg/dL mg/dL (7-23) Creatinine 1.1 mg/dL mg/dL (0.7-1.3) Estimated GFR > 60 Glucose 146 mg/dL H mg/dL (70-100) Calcium 9.9 mg/dL mg/dL (8.5-10.4) Troponin I < 0.012 ng/mL ng/mL (0.000-0.034) NT-Pro-B Natriuret Pep 76 pg/mL pg/mL (0-125) Medications Given: Discontinued Medications Sodium Chloride (Ns) 1,000 mls @ 0 mls/hr IV EDNOW ONE; Wide Open PRN Reason: Protocol Stop: 10/05/17 22:43 Last Admin: 10/05/17 22:46 Dose: 1,000 mls Departure - Departure Disposition: Home, Routine, Self-Care Clinical Impression: Premature atrial beat Condition: Good Instructions: Premature Atrial Contractions (ED) Additional Instructions: Please return to the emergency department if your worse in any way. Referrals: Pedro Horn MD [Medical Doctor] - As per Instructions
[2017-10-05 22:56] LABS: ANION GAP 17 mEq/L (8-16); CALCIUM 9.9 mg/dL (8.5-10.4); CARBON DIOXIDE 25 mEq/l (22-31); CHLORIDE 99 mEq/L (97-110); CREATININE 1.1 mg/dL (0.7-1.3); GLOMERULAR FILTRATION RATE > 60; GLUCOSE 146 mg/dL (70-100); POTASSIUM 3.9 mEq/L (3.5-5.2); SODIUM 141 mEq/L (134-144)
[2017-10-05 23:08] LABS: TROPONIN I < 0.012 ng/mL (0.000-0.034)
[2017-10-06 00:38] LABS: % IMMATURE GRANULYOCYTES 0.4 % (0.0-1.1); ABSOLUTE IMMATURE GRANULOCYTES 0.05 10^3/uL (0.00-0.10); ADD DIFF? NO; ADD MORPH? NO; ADD SCAN? NO; ATYPICAL LYMPHOCYTE FLAG 0 (0-99); FRAGMENT RBC FLAG 10 (0-99); HEMATOCRIT 44.5 % (40.0-51.0); HEMOGLOBIN 15.4 g/dL (13.7-17.5); LEFT SHIFT FLG 10 (0-99); LIPEMIA HEMOLYSIS FLAG 90 (0-99); MEAN CELL HEMOGLOBIN 31.4 pg (27.9-34.1); MEAN CELL HEMOGLOBIN CONCENTR. 34.6 g/dL (32.4-36.7); MEAN CELL VOLUME 90.6 fL (81.5-99.8); MEAN PLATELET VOLUME 11.7 fL (8.7-11.7); PLATELET CLUMPS FLAG 10 (0-99); PLATELET COUNT 211 10^3/uL (150-400); RED BLOOD CELL COUNT 4.91 10^6/uL (4.40-6.38); RED CELL DISTRIBUTION WIDTH 12.9 % (11.5-15.2)
[2017-10-06 01:19] VITALS: BP 138/84; PULSE 87; RESP 18; O2SAT 93
== END 2017-10-06 01:30 | disposition home or self-care (01) ==
LOC: EDUNIT#
DX: I49.1 Atrial premature depolarization (principal); I10 Essential (primary) hypertension; E86.9 Volume depletion, unspecified; Z79.82 Long term (current) use of aspirin